=== PATIENT | male | born 1965 | race Caucasian/White ===

== ENCOUNTER → 2017-03-09 | Outpatient (CLI) | payer BC ==
[2017-03-09] MEDS: REGADENOSON 0.4 MG/5 ML DISP.SYRIN. IV (10:27)
== END | disposition home or self-care (01) ==
LOC: NM 08:47
DX: R07.9 Chest pain, unspecified (principal); E11.9 Type 2 diabetes mellitus without complications
CPT/HCPCS: 78452; 93017; 93306; 96374; 96375; 96376; A9500; J2785